=== PATIENT | male | born 2005 | race Caucasian/White ===

== ENCOUNTER 2024-09-13 23:04 | Emergency (ER) | payer OTHER, SELFPAY ==
[2024-09-13 23:16] VITALS: BP 138/104; PULSE 100; RESP 16; TEMP 36.6; O2SAT 94; O2SAT 97
--- NOTE | 2024-09-13 23:17 | ED_ITS ---
HPI - General Adult General Chief complaint: Alcohol/Intoxication <Nataliia Vogt MD - Last Filed: 09/19/24 20:41> Stated complaint: possible alcohol poisoning <Nataliia Vogt MD - Last Filed: 09/19/24 20:41> Time Seen by Provider: 09/13/24 23:14 <Nataliia Vogt MD - Last Filed: 09/19/24 20:41> Source: patient and other (Friend) <Nataliia Vogt MD - Last Filed: 09/19/24 20:41> Mode of arrival: ambulatory <Nataliia Vogt MD - Last Filed: 09/19/24 20:41> Limitations: altered mental status <Nataliia Vogt MD - Last Filed: 09/19/24 20:41> History of Present Illness HPI narrative: 19-year-old male presenting today with acute alcohol intoxication. His friend brought him in because the patient has been vomiting for quite some time now. He had approximately 14 mixed drinks this evening. Denies drug use. Patient is on escitalopram for anxiety. <Nataliia Vogt MD - Last Filed: 09/19/24 20:41> Review of Systems Status of ROS: Reports: 10 or more systems reviewed and unremarkable except as noted in History and below <Nataliia Vogt MD - Last Filed: 09/19/24 20:41> Exam Narrative: Exam Narrative: Well-nourished well-developed patient, retching. Obviously intoxicated. He does answer questions appropriately and is cooperative. Speech is very slurred. HEENT: Normocephalic atraumatic. Pupils are equally round reactive to light. Extraocular muscles are intact. Conjunctivae are moist, glassy, without any icterus noted. Moist mucous membranes. Cardiovascular: Heart is regular rate and rhythm S1 and S2 are present without any murmurs. Lungs: Clear to auscultation bilaterally no wheezes rhonchi or rales are appreciated. Patient takes deep breaths without any discomfort. Abdomen: Soft and nontender nondistended with normal bowel sounds. Extremities: Bilateral lower extremities are without edema. Normal DP and PT pulses. Skin: Well perfused without any obvious rashes. <Nataliia Vogt MD - Last Filed: 09/19/24 20:41> Const: Vital Signs, click to edit/add: Vital Signs - 24 hr 09/13/24 23:16 09/13/24 23:16 09/13/24 23:44 Temperature 98 F Pulse Rate 63 Pulse Rate [Pulse Oximeter] 100 Respiratory Rate 16 Blood Pressure Blood Pressure [Ri ght Upper Arm] 138/104 H Pulse Oximetry 94 97 97 Oxygen Delivery Me thod Room Air 09/13/24 23:45 09/13/24 23:47 09/14/24 00:00 Temperature Pulse Rate 54 L 46 L 49 L Pulse Rate [Pulse Oximeter] Respiratory Rate 16 Blood Pressure 128/75 Blood Pressure [Ri ght Upper Arm] Pulse Oximetry 96 99 97 Oxygen Delivery Me thod 09/14/24 00:15 09/14/24 00:20 09/14/24 00:30 Temperature Pulse Rate 60 87 70 Pulse Rate [Pulse Oximeter] Respiratory Rate 16 Blood Pressure 98/60 Blood Pressure [Ri ght Upper Arm] Pulse Oximetry 99 99 97 Oxygen Delivery Me thod 09/14/24 00:32 09/14/24 00:33 09/14/24 00:48 Temperature Pulse Rate 57 L 62 69 Pulse Rate [Pulse Oximeter] Respiratory Rate 16 Blood Pressure 97/70 Blood Pressure [Ri ght Upper Arm] Pulse Oximetry 98 97 97 Oxygen Delivery Me thod 09/14/24 01:00 09/14/24 01:03 09/14/24 01:15 Temperature Pulse Rate 65 62 69 Pulse Rate [Pulse Oximeter] Respiratory Rate 18 Blood Pressure 113/68 Blood Pressure [Ri ght Upper Arm] Pulse Oximetry 95 95 93 Oxygen Delivery Me thod 09/14/24 01:30 09/14/24 01:32 09/14/24 01:45 Temperature Pulse Rate 66 66 67 Pulse Rate [Pulse Oximeter] Respiratory Rate 18 Blood Pressure 112/53 L Blood Pressure [Ri ght Upper Arm] Pulse Oximetry 93 93 93 Oxygen Delivery Me thod 09/14/24 02:00 09/14/24 02:02 09/14/24 02:15 Temperature Pulse Rate 65 80 71 Pulse Rate [Pulse Oximeter] Respiratory Rate 16 Blood Pressure 114/59 L Blood Pressure [Ri ght Upper Arm] Pulse Oximetry 93 93 95 Oxygen Delivery Me thod 09/14/24 02:30 09/14/24 02:32 09/14/24 02:45 Temperature Pulse Rate 63 66 65 Pulse Rate [Pulse Oximeter] Respiratory Rate Blood Pressure 113/56 L Blood Pressure [Ri ght Upper Arm] Pulse Oximetry 92 93 92 Oxygen Delivery Me thod 09/14/24 03:00 09/14/24 03:15 09/14/24 03:30 Temperature Pulse Rate 73 65 64 Pulse Rate [Pulse Oximeter] Respiratory Rate Blood Pressure Blood Pressure [Ri ght Upper Arm] Pulse Oximetry 93 95 94 Oxygen Delivery Me thod <Nataliia Vogt MD - Last Filed: 09/19/24 20:41> Vital Signs, click to edit/add: Vital Signs - 24 hr 09/13/24 23:16 09/13/24 23:16 09/13/24 23:44 Temperature 98 F Pulse Rate 63 Pulse Rate [Pulse Oximeter] 100 Respiratory Rate 16 Blood Pressure Blood Pressure [Ri ght Upper Arm] 138/104 H Pulse Oximetry 94 97 97 Oxygen Delivery Me thod Room Air 09/13/24 23:45 09/13/24 23:47 09/14/24 00:00 Temperature Pulse Rate 54 L 46 L 49 L Pulse Rate [Pulse Oximeter] Respiratory Rate 16 Blood Pressure 128/75 Blood Pressure [Ri ght Upper Arm] Pulse Oximetry 96 99 97 Oxygen Delivery Me thod 09/14/24 00:15 09/14/24 00:20 09/14/24 00:30 Temperature Pulse Rate 60 87 70 Pulse Rate [Pulse Oximeter] Respiratory Rate 16 Blood Pressure 98/60 Blood Pressure [Ri ght Upper Arm] Pulse Oximetry 99 99 97 Oxygen Delivery Me thod 09/14/24 00:32 09/14/24 00:33 09/14/24 00:48 Temperature Pulse Rate 57 L 62 69 Pulse Rate [Pulse Oximeter] Respiratory Rate 16 Blood Pressure 97/70 Blood Pressure [Ri ght Upper Arm] Pulse Oximetry 98 97 97 Oxygen Delivery Me thod 09/14/24 01:00 09/14/24 01:03 09/14/24 01:15 Temperature Pulse Rate 65 62 69 Pulse Rate [Pulse Oximeter] Respiratory Rate 18 Blood Pressure 113/68 Blood Pressure [Ri ght Upper Arm] Pulse Oximetry 95 95 93 Oxygen Delivery Me thod 09/14/24 01:30 09/14/24 01:32 09/14/24 01:45 Temperature Pulse Rate 66 66 67 Pulse Rate [Pulse Oximeter] Respiratory Rate 18 Blood Pressure 112/53 L Blood Pressure [Ri ght Upper Arm] Pulse Oximetry 93 93 93 Oxygen Delivery Me thod 09/14/24 02:00 09/14/24 02:02 09/14/24 02:15 Temperature Pulse Rate 65 80 71 Pulse Rate [Pulse Oximeter] Respiratory Rate 16 Blood Pressure 114/59 L Blood Pressure [Ri ght Upper Arm] Pulse Oximetry 93 93 95 Oxygen Delivery Me thod 09/14/24 02:30 09/14/24 02:32 09/14/24 02:45 Temperature Pulse Rate 63 66 65 Pulse Rate [Pulse Oximeter] Respiratory Rate Blood Pressure 113/56 L Blood Pressure [Ri ght Upper Arm] Pulse Oximetry 92 93 92 Oxygen Delivery Me thod 09/14/24 03:00 09/14/24 03:15 09/14/24 03:30 Temperature Pulse Rate 73 65 64 Pulse Rate [Pulse Oximeter] Respiratory Rate Blood Pressure Blood Pressure [Ri ght Upper Arm] Pulse Oximetry 93 95 94 Oxygen Delivery Me thod <Nataliia Culp MD - Last Filed: 09/14/24 05:01> Course Course ED Course: Patient is placed on a personnel monitor. IV is established he is given a L of normal saline and IV Zofran. Care will be transferred to oncoming physician. <Nataliia Vogt MD - Last Filed: 09/19/24 20:41> Reevaluation(s) Time of Reevaluation #1: 05:01 <Nataliia Culp MD - Last Filed: 09/14/24 05:01> Reevaluation #1: Patient is up, able to ambulate to the bathroom, conversive. He is back to baseline. He will go home with his friend at this time. <Nataliia Talbert MD - Last Filed: 09/14/24 05:01> Vital Signs Vital signs: Initial Vital Signs Temperature 98 F 09/13/24 23:16 Temperature Source Temporal Artery Scan 09/13/24 23:16 Pulse Rate 100 09/13/24 23:16 Respiratory Rate 16 09/13/24 23:16 Blood Pressure 138/104 H 09/13/24 23:16 Blood Pressure Mean 115 H 09/13/24 23:16 Blood Pressure Position Supine 09/13/24 23:16 Pulse Oximetry 94 09/13/24 23:16 Oxygen Delivery Method Room Air 09/13/24 23:16 Vital Signs Temperature 98 F 09/13/24 23:16 Pulse Rate 100 09/13/24 23:16 Respiratory Rate 16 09/13/24 23:16 Blood Pressure 138/104 H 09/13/24 23:16 Pulse Oximetry 94 09/13/24 23:16 Oxygen Delivery Method Room Air 09/13/24 23:16 Temperature 98 F 09/13/24 23:16 Pulse Rate 64 09/14/24 03:30 Respiratory Rate 16 09/14/24 02:02 Blood Pressure 113/56 L 09/14/24 02:32 Pulse Oximetry 94 09/14/24 03:30 Oxygen Delivery Method Room Air 09/13/24 23:16 <Nataliia Vogt MD - Last Filed: 09/19/24 20:41> Initial Vital Signs Temperature 98 F 09/13/24 23:16 Temperature Source Temporal Artery Scan 09/13/24 23:16 Pulse Rate 100 09/13/24 23:16 Respiratory Rate 16 09/13/24 23:16 Blood Pressure 138/104 H 09/13/24 23:16 Blood Pressure Mean 115 H 09/13/24 23:16 Blood Pressure Position Supine 09/13/24 23:16 Pulse Oximetry 94 09/13/24 23:16 Oxygen Delivery Method Room Air 09/13/24 23:16 Vital Signs Temperature 98 F 09/13/24 23:16 Pulse Rate 100 09/13/24 23:16 Respiratory Rate 16 09/13/24 23:16 Blood Pressure 138/104 H 09/13/24 23:16 Pulse Oximetry 94 09/13/24 23:16 Oxygen Delivery Method Room Air 09/13/24 23:16 Temperature 98 F 09/13/24 23:16 Pulse Rate 64 09/14/24 03:30 Respiratory Rate 16 09/14/24 02:02 Blood Pressure 113/56 L 09/14/24 02:32 Pulse Oximetry 94 09/14/24 03:30 Oxygen Delivery Method Room Air 09/13/24 23:16 <Nataliia Culp MD - Last Filed: 09/14/24 05:01> Medications Administered Medications: Discontinued Medications Generic Name Dose Route Start Last Admin Trade Name Freq PRN Reason Stop Dose Admin Sodium Chloride 1,000 mls @ 1,000 mls/hr 09/13/24 23:15 09/14/24 00:58 0.9 % Sodium Chloride 1000 Ml IV 09/14/24 00:14 Infused .Q1H ROGER Infusion Ondansetron HCl 4 mg 09/13/24 23:15 09/13/24 23:26 Ondansetron 2 Mg/Ml Inj IVP 09/13/24 23:16 4 mg ONCE ONE Administration <Nataliia Vogt MD - Last Filed: 09/19/24 20:41> Discontinued Medications Generic Name Dose Route Start Last Admin Trade Name Freq PRN Reason Stop Dose Admin Sodium Chloride 1,000 mls @ 1,000 mls/hr 09/13/24 23:15 09/14/24 00:58 0.9 % Sodium Chloride 1000 Ml IV 09/14/24 00:14 Infused .Q1H ROGER Infusion Ondansetron HCl 4 mg 09/13/24 23:15 09/13/24 23:26 Ondansetron 2 Mg/Ml Inj IVP 09/13/24 23:16 4 mg ONCE ONE Administration <Nataliia Culp MD - Last Filed: 09/14/24 05:01> Medical Decision Making Lab Data Labs: Lab Results 09/13/24 Range/Units 23:37 Salicylates < 1.0 L (1.0-10) mg/dL Acetaminophen < 10.0 L (10.0-30.0) ug/mL Ethyl Alcohol 0.25 H (0.01-0.03) % <Nataliia Vogt MD - Last Filed: 09/19/24 20:41> Lab Results 09/13/24 Range/Units 23:37 Salicylates < 1.0 L (1.0-10) mg/dL Acetaminophen < 10.0 L (10.0-30.0) ug/mL Ethyl Alcohol 0.25 H (0.01-0.03) % <Nataliia Culp MD - Last Filed: 09/14/24 05:01> Discharge Plan Discharge Clinical Impression: Alcoholic intoxication <Nataliia Vogt MD - Last Filed: 09/19/24 20:41> Patient Disposition: Home, Self-Care <Nataliia Vogt MD - Last Filed: 09/19/24 20:41> Condition: Stable <Nataliia Vogt MD - Last Filed: 09/19/24 20:41> Instructions: Alcohol Intoxication (ED), Alcohol Use Disorder (ED) <Nataliia Vogt MD - Last Filed: 09/19/24 20:41> Additional Instructions: It is recommended that you do not drink alcohol to this excess. Alcohol intoxication can be life-threatening at times and is certainly important to minimize excessive use to prevent any complication of this nature. Stay hydrated today. If you have any hangover effects like headache, can use Tylenol or ibuprofen per bottle directions. <Nataliia Vogt MD - Last Filed: 09/19/24 20:41> Activity Level: Activity as Tolerated <Nataliia Vogt MD - Last Filed: 09/19/24 20:41> Activity as Tolerated <Nataliia Culp MD - Last Filed: 09/14/24 05:01> Follow Up/Referrals: Provider,Not a Local [Primary Care Provider] - <Nataliia Vogt MD - Last Filed: 09/19/24 20:41> Stand Alone Forms: MyHealth Info Instructions <Nataliia Vogt MD - Last Filed: 09/19/24 20:41>
[2024-09-13] MEDS: 0.9 % SODIUM CHLORIDE 1000 ml 1,000 ML IV (23:26)
[2024-09-13] MEDS: ONDANSETRON 2 MG/ML inj 4 MG IVP (23:26)
[2024-09-13 23:44] VITALS: PULSE 63; O2SAT 97
[2024-09-13 23:45] VITALS: PULSE 54; O2SAT 96
[2024-09-13 23:47] VITALS: BP 128/75; PULSE 46; RESP 16; O2SAT 99
[2024-09-14] VITALS (22 sets, daily range): BP systolic 97–114; BP diastolic 53–70; PULSE 49–87; RESP 16–18; O2SAT 92–99
[2024-09-14 00:02] LABS: Salicylate* < 1.0 mg/dL (1.0-10)
[2024-09-14 00:10] LABS: Acetaminophen* < 10.0 ug/mL (10.0-30.0); Ethanol* 0.25 % (0.01-0.03)
== END 2024-09-14 05:16 | disposition home or self-care (01) ==
PROVIDERS: Emergency Provider Family Medicine
DX: F10.129 Alcohol abuse with intoxication, unspecified (principal)
CPT/HCPCS: 36415; 80143; 80179; 80306; 82077; 94761; 96374; 99283; 99284; J2405; J7030